=== PATIENT | male | born 1950 | race Caucasian/White ===

== ENCOUNTER 2020-11-08 06:01 | Observation (INO) ==
--- NOTE | 2020-10-25 09:37 | PAT Medication Instructions ---
Medication Instructions Date of Service October 25, 2020 Home Medications amlodipine 5 mg PO QPM lisinopril 40 mg PO QAM DO NOT take the morning of surgery lisinopril 40 mg PO QAM Take evening before surgery amlodipine 5 mg PO QPM Other Notes If you have any questions please call us at [phone] or [phone] or [phone] or [phone]
--- NOTE | 2020-10-26 12:12 | Anesthesiology Consultation ---
Date of Service October 26, 2020 Assessment & Plan (1) Encounter for pre-operative examination: - COVID screening: Per assessment on 10/26: Travel screen negative, no known COVID-19 positive contacts or current COVID-19 related symptoms. Surgeon arranging preop COVID testing. Awaiting results. - Possible difficult intubation: due to anatomy Chart Review Chart Review: Acceptable Risk for Surgery and Patient seen in Pre Admission Testing Teaching & Discussion Pre-Anesthesia Teaching/Discussion Notes: Instructed NPO after midnight before surgery,except medications with 15 cc of water. Medication instructions provid ed according to the PAT guidelines. History Surgery Operation Date: 11/08/20 07:30 Proposed Procedures p Robotic Laparoscopic Cyst Decortication - Florentino Buckner MD Height/Weight Height: 5 ft 6 in Weight: 117 kg Allergies Allergy/AdvReac Type Severity Reaction Status Date / Time latex Allergy Mild Rash Verified 10/19/20 15:42 Medications Home Medications Medication Instructions Recorded Confirmed Last Taken amlodipine 5 mg PO QPM 10/19/20 10/19/20 Unknown lisinopril 40 mg PO QAM 10/19/20 10/19/20 Unknown Past Medical History Medical History Hx of gout Hyperlipidemia "Borderline" Hypertension Morbid obesity Osteoarthritis Renal cyst IR drainage Exercise / Class Metabolic Activity II 4-5 Yardwork/Stairs/Walk up hill Past Family History Family History Mother Hypertension Family history of diabetes mellitus Other No family history of adverse response to anesthesia Past Surgical History Surgical History Heel spur Left heel surgery History of knee replacement R/L History of rotator cuff surgery R/L History of tooth extraction Hx of cholecystectomy Past Anesthesia History No Family Hx of Anesthesia Complications and Other ("Awareness" with knee surgery/couldn't talk ) History of PONV No Hx of PONV and No Hx of Motion Sickness Social History Smoking Status: Current some day smoker tobacco type: pipe Smoking cigarettes per day: Rare pipe Do You Dip or Chew Tobacco: No Hx Alcohol Use: No Hx Substance Use: No substance use type: does not use Review of Systems + snoring. No apnea events. Patient denies chest pain, shortness of breath, dyspnea on exertion, fever, chills, cough, wheezing, palpitations. Physical Exam Vital Signs VITALS BP 161/91 (pt states he took BP earlier in the day > 140s/80s) P 66 TEMP 98.4 SP02 94%RA RESP 18 PHYSICAL Full cervical extension range of motion. Full TMJ range of motion. TMD 4 finger breaths Mallampati Score 4 (small oral opening) Dentition: full upper denture Lungs: clear throughout to auscultation Cardiac: regular rate and rhythm, no murmurs noted Spine: normal Carotid arteries: negative bruit Extremities: no edema Short, thick neck Testing Laboratory Results 10/26/20 12:25 10/26/20 12:25 Urine Color Yellow 10/26/20 Unknown Urine Appearance Clear (Clear) 10/26/20 Unknown Urine pH 6.5 (4.5-7.5) 10/26/20 Unknown Ur Specific [place] 1.020 (1.000-1.030) 10/26/20 Unknown Urine Protein Negative (Negative) 10/26/20 Unknown Urine Glucose (UA) Negative (Negative) 10/26/20 Unknown Urine Ketones Negative (Negative) 10/26/20 Unknown Urine Nitrite Negative (Negative) 10/26/20 Unknown Ur Leukocyte Esterase Negative (Negative) 10/26/20 Unknown Electrocardiogram Date: 10/26/20 Findings: + NSR @ (65) Chest X-Ray Date: 10/26/20 FINDINGS: Lung volumes are normal. Lungs are clear. There is no pneumothorax or pleural effusion. Cardiac size is normal. Mediastinal contours are normal. There is no evidence for pulmonary edema. IMPRESSION: No acute cardiopulmonary findings. Other Testing Renal CT: 09/21/20: Multiple bilateral renal cysts. The largest on the left measures 5 cm. The largest on the right measures 7.5 cm. The 7.5 cm upper pole right renal cyst is complex containing calcified septa. There is no pathologic septal enhancement and no enhancing mural nodules are visualized. This is a Bosniak 2F lesion. 12 month follow-up recommended.
[2020-10-26 12:40] LABS: Basophils # (auto) 0.02 K/uL (0-0.2); Basophils % (auto) 0.3 %; Eosinophils # (auto) 0.12 K/uL (0-0.5); Hematocrit (blood only) 45.4 % (42-52); Hemoglobin 15.8 g/dL (14.0-18.0); Immature Granulocytes # (auto) 0.03 K/uL (0.00-0.02); Immature Granulocytes % (auto) 0.5 %; Lymphocytes # (auto) 1.31 K/uL (1.2-3.4); Lymphocytes % (auto) 21.3 %; Mean Corpuscular Hemoglobin 31.2 pg (25-34); Mean Corpuscular Hgb Conc 34.8 g/dL (32-36); Mean Corpuscular Volume 89.7 fL (80-100); Mean Platelet Volume 9.2 fL (7.4-10.4); Monocytes # (auto) 0.45 K/uL (0.11-0.59); Monocytes % (auto) 7.3 %; Neutrophils # (auto) 4.21 K/uL (1.4-6.5); Neutrophils % (auto) 68.6 %; Platelet Count 230 K/uL (130-400); RDW Coefficient of Variation 13.8 % (11.5-14.5); RDW Standard Deviation 45.3 fL (36.4-46.3); Red Blood Count 5.06 M/uL (4.7-6.1); White Blood Count 6.14 K/uL (4.8-10.8)
[2020-10-26 12:47] LABS: Appearance Urine Clear (Clear); Bilirubin Urine Negative (Negative); Blood Urine Negative (Negative); Color Urine Yellow; Glucose Urine UA Negative (Negative); Ketones Urine Negative (Negative); Leukocyte Esterase Urine Negative (Negative); Nitrite Urine Negative (Negative); Protein Urine Negative (Negative); Urobilinogen Urine Negative (Negative); pH Urine 6.5 (4.5-7.5)
--- NOTE | 2020-10-26 13:22 | XRay Report ---
XR chest Pre-admission PA/Lat CLINICAL HISTORY: Preoperative evaluation. COMPARISON STUDY: No previous studies for comparison. FINDINGS: Lung volumes are normal. Lungs are clear. There is no pneumothorax or pleural effusion. Car diac size is normal. Mediastinal contours are normal. There is no evidence for pulmonary edema. IMPRESSION: No acute cardiopulmonary findings. ACT 112: Negative or not required by law. Electronically signed by: Rolo Means M.D. 10/26/2020 1:21 PM
[2020-10-26 14:27] LABS: BUN Creatinine Ratio 14.1 (10-20); Calcium 8.8 mg/dl (8.5-10.1); Creatinine Clr Calc Pharmacy 65.5 ml/min; Est GFR (African American) 65.7; Est GFR (Non-African American) 56.7; Potassium 4.2 mmol/L (3.5-5.1)
--- NOTE | 2020-10-26 16:07 | Electrocardiogram Report ---
Test Reason : Blood Pressure : / mmHG Vent. Rate : 065 BPM Atrial Rate : 065 BPM P-R Int : 180 ms QRS Dur : 100 ms QT Int : 416 ms P-R-T Axes : 070 044 030 degrees QTc Int : 432 ms Normal sinus rhythm Normal ECG No previous ECGs available Confirmed by Ezekiel Lemus ([id number]) on 10/26/2020 4:06:45 PM Referred By: Florentino Buckner Confirmed By:Ezekiel Lemus
[~2020-11-08 06:01] MED LIST: HEPARIN SOD 5,000 UNIT/0.5 ML VIAL SQ SCH; LACTATED RINGER'S 1,000 ML IV SCH; ceFAZolin 2000MG 2,000 MG/15 ML SYR IV SCH
[2020-11-08] MEDS ORDERED: LIDOCAINE HCL 2% 2 ML VIAL/AMP(20MG/ML) INFIL ONE (07:09)
[2020-11-08] MEDS ORDERED: GLYCOPYRROLATE 0.2 MG/ML VIAL ONE ×2 (07:09→08:48)
[2020-11-08] MEDS ORDERED: NEOSTIGMINE METHYLSULFATE 5 MG/5 ML SYR ONE (07:09)
[2020-11-08] MEDS ORDERED: MIDAZOLAM HCL 1 MG/ML 2ML VIAL ONE (07:09)
[2020-11-08] MEDS ORDERED: PROPOFOL IV EMULSION 10 MG/ML 20 ML VIAL IV ONE (07:09)
[2020-11-08] MEDS ORDERED: ONDANSETRON INJ 2 MG/ML 2 ML VIAL ONE (07:09)
[2020-11-08] MEDS ORDERED: ROCURONIUM BROMIDE 10 MG/ML 5 ML VIAL IV ONE (07:09)
[2020-11-08] MEDS ORDERED: DEXAMETHASONE SOD INJ 4 MG/ML VIAL ONE (07:09)
[2020-11-08] MEDS ORDERED: fentaNYL citrate 100 MCG/2 ML VIAL ONE ×2 (07:09→07:10)
--- NOTE | 2020-11-08 07:27 | History & Physical Report ---
Date of Service November 08, 2020 Assessment & Plan (1) Renal cyst: right renal cyst decortication risks, benefits, expectations reviewed History of Present Illness Primary Care Provider: Vikas Craven symptomatic right renal cyst - presenting for surgical cyst decortication Allergies Allergy/AdvReac Type Severity Reaction Status Date / Time latex Allergy Mild Rash Verified 11/08/20 07:10 Home Medications Medication Instructions Recorded Confirmed Type amlodipine 5 mg PO QPM 10/19/20 11/08/20 History lisinopril 40 mg PO QAM 10/19/20 11/08/20 History Past Med/Surg History Medical History Hx of gout Hyperlipidemia "Borderline" Hypertension Morbid obesity Osteoarthritis Renal cyst IR drainage Surgical History Heel spur Left heel surgery History of knee replacement R/L History of rotator cuff surgery R/L History of tooth extraction Hx of cholecystectomy Family History Mother Hypertension Family history of diabetes mellitus Other No family history of adverse response to anesthesia Social History (Updated 10/26/20 @ 11:46 by Dory Sheets) Smoking Status: Current some day smoker Cigarettes Per Day: Rare pipe; Second Hand Exposure: No; Do You Dip or Chew Tobacco: No; Tobacco Cessation Education Requested by Patient: No Hx Alcohol Use: No Hx Substance Use: No 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 Beliefs That Will Affect Care: None marital status: Current Living Situation: Spouse Feels Safe at Home: Yes Safety Concerns: Feels Safe At This Time Assistive Devices: Denture - Upper and Glasses Physical Exam Constitutional: well developed and well nourished Neck: neck nontender Respiratory: normal respiratory effort; no respiratory distress and does not use accessory muscles Cardiovascular: Rate/Rhythm: regular rate Vessels: radial pulses present Extremities: no edema Gastrointestinal (Abdomen): Inspection/Auscultation: abdomen normal to inspection Percussion/Palpation: abdomen soft; abdomen nontender and no guarding Musculoskeletal: Head/Neck/Chest: normocephalic and head atraumatic Extremities: extremities normal to inspection Skin: no rashes and no lesions Trauma: no evidence of skin trauma Neurologic: awake; not obtunded Speech / Cognition: normal speech Motor/Sensory: no tremor Psychiatric: Orientation: alert and oriented x 3 Genitourinary: no CVA tenderness Lymphatic: no lymphadenopathy
[2020-11-08] MEDS ORDERED: BUPIVACAINE 0.5 % 5 MG/1 ML MPF 30ML VIAL ONE (07:30)
[2020-11-08] MEDS ORDERED: ATROPINE SULFATE 0.1 MG/ML 10ML SYR IV PRN (08:51)
[2020-11-08] MEDS ORDERED: ePHEDrine sulfate 50 MG/ML AMP IV PRN (08:51)
[2020-11-08] MEDS ORDERED: ONDANSETRON INJ 2 MG/ML 2 ML VIAL IV PRN ×2 (08:51→11:29)
--- NOTE | 2020-11-08 09:50 | Operative Report ---
PG Post Operative Report Pre & Post Diagnosis Operation Date: 11/08/20 07:30 Pre-Op Diagnosis: Right Renal Cyst Post-Op Diagnosis: Right Renal Cyst I identified the patient and participated in the time-out.: Yes Procedure Operation Date: 11/08/20 07:30 Actual Procedures p Robotic Assisted Right Laparoscopic Cyst Decortication(Right) - Florentino Buckner MD Surgeon Anson Buckner MD Tax Attorney Breanna Patton Estimated Blood Loss 10 Findings Consistent with Post-Op Diagnosis Specimens Right renal cyst sims Description of Procedure Patient was identified in the preoperative holding area, appropriate informed consents reviewed and completed and the patient was transported to the operating suite. Upon arrival he received appropriate preoperative antibiotics in the form of Ancef. He was placed in the left side down right side up lateral decubitus position with the bed flexed. I insufflated the abdomen after passing a Veress needle into the right upper quadrant. There was uniform insufflation. I marked my tentative port siteseach approximately 5 cm lateral to the rectus border. The top port was marked 2 fingerbreadths below the costal margin with each subsequent port approximately 6 cm inferior to the 1 above it. I began with the second highest port and incised it and passed a 9 mm robotic trocar with laparoscope and visual obturator. Inspection revealed a healthy-appearing abdomen without any adhesions. There was no veress trauma. Each subsequent port was placed under direct vision. I then placed a 5 mm social media assistant port along the rectus border approximately 5 cm above the umbilicus. I began my robotic portion of the case by incising the white line of Toldt medializing the colon. I was able to visualize the duodenum but I did not require kocherization as I was working lateral in the kidney. Turning first to the lower pole of the kidney I incised through this fascia and expose the underlying renal parenchyma. A large cyst was visualized in the extreme lower pole. After exposing this I incised it and drained it. Inner aspect of the cyst was inspected and quite healthy. The redundant extrinsic portion of the cyst was excised and cauterized. I then continue to work my way cephalad. There was another large cyst in the midpole of the kidney which was exposed and incised. The inner aspect of the cyst was again inspected and found to be healthy. There was clear fluid. I cauterized the cut edge and remove the redundant portion of the cyst. Bit of Gerota's fascia was guided into this defect. I then turned my attention to the upper pole. This is the largest of the cysts and was exposed along its anterior, medial, lateral surfaces. The posterior surface was not entirely visualized as I did not want to flip the kidney. After exposing a significant portion of the cyst I incised it and drained the fluid. This was multiloculated. There was some firm septations in the middlethis was all new from the time of his recent aspiration. I then excised the redundant portion of the cyst wall as well as the septations. I cauterized the cut edges and confirmed good hemostasis. The cyst sims were collected into an Endo Catch bag and extracted through the lower robotic port. After again confirming excellent hemostasis we undocked the robot and desufflat ed the abdomen. Each incision was closed utilizing a 4-0 Monocryl and Dermabond. Each was infiltrated with half percent Marcaine. There were no complications. He was extubated and taken to the PACU in stable condition. The cyst sims were sent off the table for routine pathology. Breanna Patton assisted from incision to closure. I attest to the content of the Intraoperative Record and any orders documented therein. Any exceptions are noted below.
[2020-11-08] MEDS: fentaNYL citrate 100 MCG/2 ML VIAL IV PRN ×2 (10:02→10:07)
--- NOTE | 2020-11-08 10:25 | Anesthesiology Progress Note ---
Date of Service November 08, 2020 Anesthesia Post Procedure Vital Signs Vital Signs: Temp Pulse Pulse Resp BP Pulse Ox 11/08/20 10:15 63 16 114/67 100 11/08/20 10:05 63 16 110/71 99 11/08/20 09:55 62 16 109/73 100 11/08/20 09:49 36.2 C L 68 18 110/67 100 11/08/20 07:25 36.8 C 66 20 172/97 H 98 Pain Intensity Right Back: Pain Intensity: 8 Transfer of Care Handoff Completed per policy Notes Mental Status: alert / awake / arousable and participated in evaluation Patient Amnestic to Procedure: Yes Nausea / Vomiting: adequately controlled Pain: adequately controlled Airway Patency, RR, SpO2: stable & adequate BP & HR: stable & adequate Hydration State: stable & adequate Anesthetic Complications: no major complications apparent and Pt Satisfied with anesthetic care
[2020-11-08 10:28] LABS: Basophils # (auto) 0.01 K/uL (0-0.2); Basophils % (auto) 0.1 %; Eosinophils # (auto) 0.09 K/uL (0-0.5); Eosinophils % (auto) 1.1 %; Hematocrit (blood only) 44.8 % (42-52); Hemoglobin 15.4 g/dL (14.0-18.0); Immature Granulocytes # (auto) 0.03 K/uL (0.00-0.02); Immature Granulocytes % (auto) 0.4 %; Lymphocytes # (auto) 1.12 K/uL (1.2-3.4); Lymphocytes % (auto) 13.7 %; Mean Corpuscular Volume 90.1 fL (80-100); Mean Platelet Volume 9.6 fL (7.4-10.4); Monocytes # (auto) 0.29 K/uL (0.11-0.59); Monocytes % (auto) 3.5 %; Neutrophils # (auto) 6.66 K/uL (1.4-6.5); Neutrophils % (auto) 81.2 %; Platelet Count 223 K/uL (130-400); RDW Coefficient of Variation 13.9 % (11.5-14.5); RDW Standard Deviation 45.4 fL (36.4-46.3); Red Blood Count 4.97 M/uL (4.7-6.1)
[2020-11-08] MEDS: HYDROmorphone INJ 1 MG/ML SYRINGE IV PRN ×4 (10:30→10:54)
[2020-11-08 10:40] LABS: Mean Corpuscular Hgb Conc 34.4 g/dL (32-36)
[2020-11-08 10:46] LABS: BUN Creatinine Ratio 14.2 (10-20); Calcium 8.6 mg/dl (8.5-10.1); Creatinine Clr Calc Pharmacy 58.3 ml/min; Est GFR (Non-African American) 49.2; Potassium 4.6 mmol/L (3.5-5.1)
[2020-11-08] MEDS ORDERED: oxyCODONE HCL IR 5 MG TAB (IMMEDIATE RELEASE) PO PRN (11:29)
[2020-11-08] MEDS ORDERED: ACETAMINOPHEN 325 MG TAB PO PRN (11:29)
[2020-11-08] MEDS ORDERED: MoRPHine SULFATE 2 MG/ML CARP IV PRN ×2 (11:29)
[2020-11-08] MEDS: oxyCODONE HCL IR 5 MG TAB (IMMEDIATE RELEASE) PO PRN ×3 (12:06→21:50)
[2020-11-08] MEDS: ceFAZolin 2000MG 2,000 MG/15 ML SYR IV SCH ×2 (15:47→23:16)
[2020-11-08] MEDS: HEPARIN SOD 5,000 UNIT/0.5 ML VIAL SQ SCH (20:02)
[2020-11-08] MEDS ORDERED: amLODIPine BESYLATE 5 MG TAB PO SCH (21:00)
[2020-11-09] MEDS: oxyCODONE HCL IR 5 MG TAB (IMMEDIATE RELEASE) PO PRN ×2 (05:25→10:02)
[2020-11-09 07:57] LABS: Eosinophils # (auto) 0.03 K/uL (0-0.5); Eosinophils % (auto) 0.3 %; Hematocrit (blood only) 42.9 % (42-52); Hemoglobin 14.4 g/dL (14.0-18.0); Immature Granulocytes # (auto) 0.02 K/uL (0.00-0.02); Immature Granulocytes % (auto) 0.2 %; Lymphocytes # (auto) 1.57 K/uL (1.2-3.4); Lymphocytes % (auto) 16.4 %; Mean Corpuscular Hemoglobin 30.8 pg (25-34); Mean Corpuscular Hgb Conc 33.6 g/dL (32-36); Mean Corpuscular Volume 91.7 fL (80-100); Mean Platelet Volume 9.7 fL (7.4-10.4); Monocytes # (auto) 0.66 K/uL (0.11-0.59); Monocytes % (auto) 6.9 %; Neutrophils # (auto) 7.31 K/uL (1.4-6.5); Neutrophils % (auto) 76.2 %; Platelet Count 214 K/uL (130-400); RDW Coefficient of Variation 13.8 % (11.5-14.5); Red Blood Count 4.68 M/uL (4.7-6.1); White Blood Count 9.59 K/uL (4.8-10.8)
--- NOTE | 2020-11-09 08:10 | Urology Progress Note ---
Date of Service November 09, 2020 Assessment & Plan (1) Renal cyst: s/p robotic cyst decortication x 4 doing well plan for d/c home this AM Admission and Anticipated Discharge Date Admission Date: November 08, 2020 Subjective no major issues overnight expected levels of pain progressing well ambulating, voiding Physical Exam Physical Exam: incisions appropriate abd soft, non-tender no bruising Results & Data ([facility]) Vital Signs (Past 12 Hours) Vital Signs Temp Pulse Resp BP Pulse Ox 11/09/20 07:39 36.7 C 69 16 120/72 91 11/09/20 03:00 36.7 C 62 19 125/70 96 11/08/20 23:00 36.9 C 72 19 120/69 95 PG Care Time/CCT Total # of Minutes Spent Total Time Spent with Patient: Total time spent is greater than 50% in coordination of care (as documented) at patient's floor/unit and/or counseling patient: Coding Level of Care Code 91336 Subseq Hosp Care Lvl 2 Diagnoses Renal cyst N28.1
[2020-11-09 08:30] LABS: BUN Creatinine Ratio 15.3 (10-20); Calcium 8.9 mg/dl (8.5-10.1); Creatinine Clr Calc Pharmacy 53.1 ml/min; Potassium 4.1 mmol/L (3.5-5.1)
--- NOTE | 2020-11-09 08:38 | Discharge Summary ---
Date of Service November 09, 2020 Admission HPI Per Admitting Provider symptomatic right renal cyst - presenting for surgical cyst decortication Admission Exam Per Admitting Provider Constitutional: well developed and well nourished Neck: neck nontender Respiratory: normal respiratory effort; no respiratory distress and does not use accessory muscles Cardiovascular: Rate/Rhythm: regular rate Vessels: radial pulses present Extremities: no edema Gastrointestinal (Abdomen): Inspection/Auscultation: abdomen normal to inspection Percussion/Palpation: abdomen soft; abdomen nontender and no guarding Musculoskeletal: Head/Neck/Chest: normocephalic and head atraumatic Extremities: extremities normal to inspection Skin: no rashes and no lesions Trauma: no evidence of skin trauma Neurologic: awake; not obtunded Speech / Cognition: normal speech Motor/Sensory: no tremor Psychiatric: Orientation: alert and oriented x 3 Genitourinary: no CVA tenderness Lymphatic: no lymphadenopathy Principal Diagnosis Renal cyst Discharge Exam Physical Exam: incisions appropriate abd soft, non-tender no bruising Discharge Data Allergies Allergy/AdvReac Type Severity Reaction Status Date / Time latex Allergy Mild Rash Verified 11/08/20 07:10 Procedures Performed Operation Date: 11/08/20 07:30 Actual Procedures p Robotic Assisted Right Laparoscopic Cyst Decortication(Right) - Florentino Buckner MD Hospital Course (1) Renal cyst: s/p robotic cyst decortication x 4 doing well plan for d/c home this AM Total Time Total Time Spent Total Time Spent (In Minutes): 25 minutes Total Time Includes: Examination of the Patient, Discharge Planning and Medication Reconciliation Discharge Plan Discharge Items Patient Disposition: Home - Self-Care Reason For Visit: Renal Cyst Discharge Diagnosis: Renal Cyst Activity: Per Instructions section Lifting: No more than 25 pounds Bathing Comment: Okay to shower after discharge, no tub baths or soaking Sexual Activity: Wait until after follow-up appointment Exercise/Sports: Wait until after follow-up appointment Driving/Machine Use: No driving while taking prescription pain medication Non-emergency contact: Surgeon and Urologist Call non-emergency contact if: your pain is not controlled, your pain is worsening, you have a fever, your temperature is above 101, your wound has increased redness, your wound has increased drainage and your wound pain has increased Follow-up/Referrals: Vikas Craven CRNP [Primary Care Provider] - Diet: Regular Addtl Attending Provider Instructions: Please take all medications as prescribed and keep all follow-ups as scheduled. Please call our office at [phone] with any questions, concerns or need to reschedule appointments for any reason. We are happy to assist you. Recovering at home: We recommend having someone with you for the first few days after surgery to help care for you. It is okay to shower tomorrow. Please avoid swimming, bathing or using hot tub until incisions are well healed. Avoid driving until you are not requiring pain medication any further. Walk at least a few times a day. Increase your distance, as you feel able. Stairs in your home are okay. Please avoid strenuous or sexual activity until your follow-up. We recommend using stool softener (i.e. Colace) to prevent constipation and straining, especially the first two weeks post operatively. Call [facility] at [phone] if you experience: Chest pain or trouble breathing (call [phone] or go to the hospital). Fever of 101F or higher Symptoms of infection at incision site, including redness or swelling, warmth, or bad-smelling drainage If you have catheter, and you notice: o Bloody urine or drainage that is dark red or has large clots (Please remember a small amount of blood is normal) o No drainage from the catheter for more than 6 hours o The catheter comes out of your bladder Pain that is not controlled with medicines Pending Studies at Discharge: Yes Stand-Alone Forms: My [facility] [employer], Smoking Cessation Medications and DC Order Prescriptions: New docusate sodium [Colace] 100 mg capsule 100 mg PO BID Qty: 60 RF: 0 oxycodone-acetaminophen [Percocet] 5-325 mg tablet 1 tab PO TID PRN (Reason: pain) Qty: 10 RF: 0 Continued amlodipine 5 mg Tablet 5 mg PO QPM RF: 0 lisinopril 40 mg Tablet 40 mg PO QAM RF: 0 Discharge Orders: Discharge Order (Routine); Ordered 11/09/20 Ordered By: Breanna Patton Admission Data Admit Date/Time: 11/08/20 09:46 Attending Provider: Florentino Buckner Admit Provider: Florentino Buckner Primary Care Provider: Vikas Craven Coding Level of Care Code D/C Day Management <30 mins Diagnoses Renal cyst N28.1
[2020-11-09] MEDS: HEPARIN SOD 5,000 UNIT/0.5 ML VIAL SQ SCH (08:54)
[2020-11-09] MEDS ORDERED: lisinopril 40 MG TAB PO SCH (09:00)
== END 2020-11-09 12:15 | disposition home or self-care (01) ==
LOC: ASU 06:01 → INTOOBSV 09:46 → 3N 09:46